=== PATIENT | male | born 1995 | race African-American/Black ===

== ENCOUNTER 2021-08-28 02:29 | Inpatient (IN) | payer OTHER ==
[2021-08-28 03:51] LABS: #Lymphocytes 0.7 thou/uL (1.20-3.40); #Monocytes 1.4 thou/uL (0.11-0.59); #Neutrophils 17.2 thou/uL (1.40-6.50); %Basophils 0.2 % (0.0-1.0); %Lymphocytes 3.7 % (21.0-51.0); %Monocytes 7.4 % (0.0-10.0); %Neutrophils 88.6 % (42.0-75.0); Hemoglobin 14.9 g/dL (14.0-18.0); Mean Corpuscular HGB CONC 32.1 g/dL (32.0-36.0); Mean Corpuscular Hemoglobin 27.1 pg (27.0-31.0); Mean Corpuscular Volume 84.4 fL (78.0-98.0); Mean Platelet Volume 7.5 fL (7.4-10.4); Platelet Count 265 thou/uL (130-400); RBC Distribution Width 12.9 % (11.5-14.5); White Blood Cell (WBC) Count 19.4 thou/uL (4.8-10.8)
[2021-08-28 04:11] LABS: ALT (SGPT) 25 U/L (8-55); AST (SGOT) 30 U/L (5-34); Albumin 3.9 g/dL (3.5-5.0); Alkaline Phosphatase 66 U/L (40-110); Anion Gap 13 mmol/L (10-20); BUN (Urea Nitrogen) 7 mg/dL (8.9-20.6); Bilirubin, Total 0.8 mg/dL (0.2-1.2); Calc. Creatinine Clearance 0 mL/min (70-130); Calcium 9.3 mg/dL (7.8-10.44); Carbon Dioxide 22 mmol/L (22-29); Chloride 107 mmol/L (98-107); Globulin 3.3 g/dL (2.4-3.5); Glucose 103 mg/dL (70-105); Potassium 3.6 mmol/L (3.5-5.1); Protein, Total 7.2 g/dL (6.0-8.3); Sodium 138 mmol/L (136-145)
[2021-08-28] MEDS ORDERED: Ondansetron PF 4 MG/2 ML Vial IVP PRN (04:11)
[2021-08-28] MEDS ORDERED: Propofol 1,000 MG/100 ML VIAL IV ONE (04:32)
[2021-08-28] MEDS: Sodium Chloride 0.9% 1,000 ML IV SCH ×3 (05:03→16:13)
[2021-08-28] MEDS ORDERED: hydrALAZINE 20 MG/ML VIAL SLOW IVP PRN (05:11)
[2021-08-28] MEDS ORDERED: Ventilator Sedation Protocol 1 EACH FS SCH (05:15)
[2021-08-28] MEDS ORDERED: Morphine 4 MG/ML VIAL SLOW IVP PRN (05:17)
[2021-08-28] MEDS ORDERED: Fentanyl BOLUS 250 ML IVPB PRN (05:30)
[2021-08-28] MEDS ORDERED: DISCONTINUE PREVIOUS NARCOTIC PAIN MEDICATIONS AND BENZODIAZEPINES FS SCH (05:30)
[2021-08-28] MEDS ORDERED: Fentanyl CADD 100 ML IV SCH (05:30)
[2021-08-28] MEDS ORDERED: VANCOMYCIN 2 GRAM/400 ML BAG 2 GM in Premix Bag 1 BAG IVPB SCH (05:30)
[2021-08-28] MEDS ORDERED: Morphine 2 MG/ML VIAL SLOW IVP PRN (05:30)
[2021-08-28] MEDS ORDERED: Propofol BOLUS 1,000 MG/100 ML VIAL IV PRN (05:30)
[2021-08-28 05:57] LABS: Bacteria/HPF None Seen HPF (None Seen); Bilirubin Negative (Negative); Blood, Urine Negative (Negative); Clarity Clear (Clear); Glucose, Urine (Dipstick) Normal (Negative); Ketone, Urine Negative (Negative); Leukocyte Negative Leu/uL (Negative); Nitrite Negative (Negative); Protein, Urine (Dipstick) Negative (Neg-Trace); RBC/HPF 0-3 HPF (0-3); Specific Gravity, Urine 1.009 (1.002-1.036); Squamous Epithelial None Seen HPF (0-3); Urobilinogen Normal mg/dL (Less than 2); WBC/HPF 0-3 HPF (0-3)
[2021-08-28 05:59] LABS: Urine Culture Reflex No No
[2021-08-28] MEDS: Cefepime 1 GM in Sodium Chloride 0.9% 100 ML IVPB SCH ×2 (07:18→20:32)
[2021-08-28] MEDS: Enoxaparin Sodium 40 MG/0.4 ML SYRINGE SC SCH (07:18)
[2021-08-28] MEDS: Famotidine 20 MG TAB PO SCH ×2 (07:18→20:32)
[2021-08-28] MEDS: Lorazepam 2 MG/ML VIAL SLOW IVP PRN ×9 (07:22→23:40)
[2021-08-28 07:26] LABS: Base Excess (BEa) -2.3 mEq/L (-2.0 to +3.0); CO2 Tension 28.7 mmHg (35.0-45.0); Calcium, Ionized (arterial) 1.22 mmol/L (1.12-1.30); Carboxyhemoglobin (COHb) 0.4 gm% (0.0-3.0); Hemoglobin (Hb) 16.1 g/dL (14.0-18.0); O2 Tension (PaO2), arterial 103.2 mmHg (80.0-100.0); Potassium - ABG Lab 3.59 mmol/L (3.70-5.30); pH, Arterial 7.46 (7.35-7.45)
[2021-08-28 08:15] LABS: Puncture Site LBA
[2021-08-28 08:17] LABS: ALV-art Gradient 110.475 mmHg (0-20)
[2021-08-28] MEDS: Propofol 1,000 MG/100 ML VIAL IV PRN ×5 (09:37→23:39)
[2021-08-28] MEDS: Acetaminophen 325 MG TAB PO PRN (17:21)
[2021-08-28] MEDS: VANCOMYCIN 1.75 GM/350 ML BAG 1.75 GM in Premix Bag 1 BAG IVPB SCH (20:31)
[2021-08-29] MEDS: Lorazepam 2 MG/ML VIAL SLOW IVP PRN ×3 (01:35→08:31)
[2021-08-29] MEDS: Sodium Chloride 0.9% 1,000 ML IV SCH ×3 (01:35→13:50)
[2021-08-29] MEDS: VANCOMYCIN 1.75 GM/350 ML BAG 1.75 GM in Premix Bag 1 BAG IVPB SCH ×3 (04:02→21:06)
[2021-08-29 04:50] LABS: #Eosinphils 0.3 thou/uL (0.0-0.7); #Lymphocytes 0.7 thou/uL (1.20-3.40); #Monocytes 0.8 thou/uL (0.11-0.59); #Neutrophils 11.9 thou/uL (1.40-6.50); %Basophils 0.1 % (0.0-1.0); %Eosinophils 2.1 % (0.0-10.0); %Monocytes 6.1 % (0.0-10.0); %Neutrophils 86.6 % (42.0-75.0); Hemoglobin 14.2 g/dL (14.0-18.0); Mean Corpuscular HGB CONC 30.4 g/dL (32.0-36.0); Mean Corpuscular Volume 85.7 fL (78.0-98.0); Mean Platelet Volume 8.3 fL (7.4-10.4); Platelet Count 224 thou/uL (130-400); RBC Distribution Width 13.1 % (11.5-14.5); Red Blood Cell (RBC) Count 5.44 mill/uL (4.70-6.10); White Blood Cell (WBC) Count 13.7 thou/uL (4.8-10.8)
[2021-08-29 05:07] LABS: ALT (SGPT) 21 U/L (8-55); AST (SGOT) 24 U/L (5-34); Albumin 3.1 g/dL (3.5-5.0); Alkaline Phosphatase 54 U/L (40-110); Anion Gap 9 mmol/L (10-20); BUN (Urea Nitrogen) 8 mg/dL (8.9-20.6); Bilirubin, Total 0.4 mg/dL (0.2-1.2); Calc. Creatinine Clearance 173 mL/min (70-130); Carbon Dioxide 23 mmol/L (22-29); Chloride 110 mmol/L (98-107); Globulin 3.2 g/dL (2.4-3.5); Glucose 81 mg/dL (70-105); Potassium 3.6 mmol/L (3.5-5.1); Protein, Total 6.3 g/dL (6.0-8.3); Sodium 138 mmol/L (136-145)
[2021-08-29] MEDS: Propofol 1,000 MG/100 ML VIAL IV PRN ×3 (05:08→19:52)
[2021-08-29 06:55] LABS: CK (CPK) 745 U/L (30-200)
[2021-08-29] MEDS: Enoxaparin Sodium 40 MG/0.4 ML SYRINGE SC SCH (07:02)
[2021-08-29] MEDS: Famotidine 20 MG TAB PO SCH ×2 (07:03→20:00)
[2021-08-29] MEDS: Cefepime 1 GM in Sodium Chloride 0.9% 100 ML IVPB SCH ×2 (07:03→20:00)
[2021-08-29] MEDS: Dextrose 5 % And 0.9 % NaCl 1,000 ML IV SCH ×2 (16:22→23:00)
[2021-08-29] MEDS: Acetaminophen 325 MG TAB PO PRN (17:51)
[2021-08-29 20:00] LABS: Vancomycin, Trough 16.4 ug/mL
[2021-08-30] MEDS: VANCOMYCIN 1.75 GM/350 ML BAG 1.75 GM in Premix Bag 1 BAG IVPB SCH ×2 (03:52→11:12)
[2021-08-30 04:18] LABS: #Eosinphils 0.4 thou/uL (0.0-0.7); #Lymphocytes 1.3 thou/uL (1.20-3.40); #Monocytes 1.2 thou/uL (0.11-0.59); #Neutrophils 6.8 thou/uL (1.40-6.50); %Basophils 0.2 % (0.0-1.0); %Lymphocytes 13.2 % (21.0-51.0); %Monocytes 12.7 % (0.0-10.0); %Neutrophils 69.9 % (42.0-75.0); Hemoglobin 12.9 g/dL (14.0-18.0); Mean Corpuscular HGB CONC 32.9 g/dL (32.0-36.0); Mean Corpuscular Hemoglobin 28.2 pg (27.0-31.0); Mean Corpuscular Volume 85.9 fL (78.0-98.0); Mean Platelet Volume 7.6 fL (7.4-10.4); Platelet Count 201 thou/uL (130-400); RBC Distribution Width 13.1 % (11.5-14.5); Red Blood Cell (RBC) Count 4.57 mill/uL (4.70-6.10); White Blood Cell (WBC) Count 9.7 thou/uL (4.8-10.8)
[2021-08-30 04:41] LABS: ALT (SGPT) 17 U/L (8-55); AST (SGOT) 17 U/L (5-34); Albumin 2.8 g/dL (3.5-5.0); Alkaline Phosphatase 47 U/L (40-110); Anion Gap 8 mmol/L (10-20); BUN (Urea Nitrogen) 8 mg/dL (8.9-20.6); Bilirubin, Total 0.4 mg/dL (0.2-1.2); CK (CPK) 562 U/L (30-200); Calc. Creatinine Clearance 173 mL/min (70-130); Calcium 8.7 mg/dL (7.8-10.44); Carbon Dioxide 21 mmol/L (22-29); Chloride 112 mmol/L (98-107); Globulin 3.2 g/dL (2.4-3.5); Glucose 115 mg/dL (70-105); Potassium 3.4 mmol/L (3.5-5.1); Sodium 138 mmol/L (136-145)
[2021-08-30] MEDS: Dextrose 5 % And 0.9 % NaCl 1,000 ML IV SCH ×2 (04:41→14:35)
[2021-08-30] MEDS ORDERED: Electrolyte Replacement Protocol 1 EACH FS SCH (07:30)
[2021-08-30] MEDS ORDERED: Electrolyte Replacement Protocol FS PRN (07:45)
[2021-08-30] MEDS: Potassium Chloride 20 MEQ in Premix Bag 1 BAG IVPB SCH ×2 (07:49→09:34)
[2021-08-30] MEDS ORDERED: Famotidine/PF 20 mg/2ml Vial SLOW IVP SCH (08:30)
[2021-08-30] MEDS: Enoxaparin Sodium 40 MG/0.4 ML SYRINGE SC SCH (08:30)
[2021-08-30] MEDS: Cefepime 1 GM in Sodium Chloride 0.9% 100 ML IVPB SCH ×2 (08:30→20:06)
[2021-08-30 09:40] LABS: Magnesium 2.1 mg/dL (1.6-2.6); Phosphorus 2.6 mg/dL (2.3-4.7)
[2021-08-30] MEDS ORDERED: Acetaminophen 500 MG TAB ONE (10:06)
[2021-08-30] MEDS ORDERED: Acetaminophen 325 MG TAB ONE (10:06)
[2021-08-30] MEDS: Acetaminophen 325 MG TAB PO PRN ×2 (10:08→20:05)
[2021-08-30] MEDS ORDERED: Lorazepam 2 MG/ML VIAL ONE (11:55)
[2021-08-30] MEDS: Lorazepam 2 MG/ML VIAL SLOW IVP PRN (12:22)
[2021-08-30 14:37] LABS: Potassium 3.5 mmol/L (3.5-5.1)
[2021-08-30] MEDS ORDERED: Dextrose 5 % And 0.9 % NaCl 1,000 ML IV SCH (17:10)
[2021-08-30] MEDS ORDERED: Temazepam 15 MG CAP PO PRN (17:23)
[2021-08-30] MEDS ORDERED: Lorazepam 0.5 MG TAB PO SCH (17:30)
[2021-08-30] MEDS: Doxycycline 100 MG CAP PO SCH (20:06)
[2021-08-30] MEDS: Lorazepam 0.5 MG TAB PO SCH (20:07)
[2021-08-30] MEDS: Famotidine 20 MG TAB PO SCH (20:20)
[2021-08-30] MEDS ORDERED: FLUoxetine HCl 20 MG CAP PO SCH (21:00)
[2021-08-31] MEDS: Potassium Chloride 20 MEQ in Premix Bag 1 BAG IVPB SCH ×2 (06:38→08:19)
[2021-08-31] MEDS: Doxycycline 100 MG CAP PO SCH (08:18)
[2021-08-31] MEDS: Lorazepam 0.5 MG TAB PO SCH (08:19)
[2021-08-31] MEDS: Famotidine 20 MG TAB PO SCH (08:19)
[2021-08-31] MEDS: Cefepime 1 GM in Sodium Chloride 0.9% 100 ML IVPB SCH (08:19)
[2021-08-31] MEDS: Enoxaparin Sodium 40 MG/0.4 ML SYRINGE SC SCH (08:19)
[2021-08-31] MEDS ORDERED: Lorazepam 0.5 MG TAB PO PRN (10:10)
[2021-08-31] MEDS ORDERED: Cefdinir 300 MG CAP PO SCH ×2 (10:15→21:00)
[2021-08-31 10:20] VITALS: BMI 31.4
[2021-08-31 15:25] VITALS: BP 151/99; TEMP 98.2
== END 2021-08-31 15:24 | DRG 871 ==
LOC: ERS 02:29 → CCU 03:11 → EEVIPCON 03:11 → T4-A 08-30 16:51
PROVIDERS: ADMIT Internal Medicine; ATTEND Internal Medicine
PROC: 5A1945Z Respiratory Ventilation, 24-96 Consecutive Hours (ICD-10-PCS; principal; 2021-08-28)
PROC: 0D9670Z Drainage of Stomach with Drainage Device, Via Natural or Artificial Opening (ICD-10-PCS; 2021-08-28)
DX: A41.9 Sepsis, unspecified organism (principal); J96.01 Acute respiratory failure with hypoxia; G92.9 Unspecified toxic encephalopathy; J69.0 Pneumonitis due to inhalation of food and vomit; M62.82 Rhabdomyolysis; R45.851 Suicidal ideations; R65.20 Severe sepsis without septic shock; F41.9 Anxiety disorder, unspecified; G40.909 Epilepsy, unspecified, not intractable, without status epilepticus; I10 Essential (primary) hypertension; F31.9 Bipolar disorder, unspecified; E66.9 Obesity, unspecified; T43.621A Poisoning by amphetamines, accidental (unintentional), initial encounter; F15.10 Other stimulant abuse, uncomplicated; Z78.1 Physical restraint status; Z91.012 Allergy to eggs; Z91.011 Allergy to milk products; Z79.899 Other long term (current) drug therapy; Z68.31 Body mass index [BMI] 31.0-31.9, adult
CPT/HCPCS: 36415; 36416; 36600; 71045; 80053; 80178; 80202; 81001; 82550; 82805; 83605; 83735; 84100; 85025; 87040; 87070; 87077; 87186; 87205; 93005; 93010; 94002; 94003; J0360; J0692; J1650; J2060; J2270; J2704; J3370; J3480; J3490; J7042; J7050; S0028